=== PATIENT | female | born 1985 | race Caucasian/White ===

== ENCOUNTER → 2017-01-24 | Outpatient (CLI) | payer MEDICAID | LOC: SUN.DIA 13:31 | DX: O24.419 Gestational diabetes mellitus in pregnancy, unspecified control (principal); Z3A.17 17 weeks gestation of pregnancy; Z71.3 Dietary counseling and surveillance | CPT/HCPCS: G0108 ==

== ENCOUNTER → 2017-02-27 | Outpatient (CLI) | payer MEDICAID | LOC: SUN.DIA 09:42 | DX: O24.419 Gestational diabetes mellitus in pregnancy, unspecified control (principal); Z3A.22 22 weeks gestation of pregnancy; Z71.3 Dietary counseling and surveillance | CPT/HCPCS: G0108 ==

== ENCOUNTER → 2017-05-06 | Outpatient (CLI) | payer MEDICAID | LOC: SUN.DIA 01-30 09:32 | DX: O24.419 Gestational diabetes mellitus in pregnancy, unspecified control (principal); Z3A.31 31 weeks gestation of pregnancy; Z71.3 Dietary counseling and surveillance | CPT/HCPCS: G0108 ==

== ENCOUNTER 2017-06-14 13:30 | Outpatient (RCR) | payer MEDICAID ==
[2017-05-27 09:50] VITALS: BP 119/654; PULSE 100
[~2017-06-14] VITALS: Ht 162.6 cm; Wt 167.4 kg
[~2017-06-14 13:30] MED LIST: BALANCE B-501 TA1; PRENATAL; PRENATAL1 TA7 PO; VITAMIN D 50,1.25 MG PO; ZYRTEC ALLERGY10 MG PO
[2017-07-03] MEDS ORDERED: VITAMIN D 50,1.25 MG PO (22:03)
[2017-07-07] MEDS ORDERED: IBU600 MG PO (11:50)
[2017-07-07] MEDS ORDERED: PERCOCET 325 MG1 TA2 PO (11:50)
== END 2017-08-25 | disposition still patient (30) ==
LOC: LDRO
DX: O24.913 Unspecified diabetes mellitus in pregnancy, third trimester (principal); Z3A.34 34 weeks gestation of pregnancy

== ENCOUNTER → 2017-07-03 | Outpatient (CLI) | payer MEDICAID ==
[~2017-07-03] VITALS: Ht 162.6 cm; Wt 173.6 kg
[~2017-07-03] MED LIST changes: +IBU600 MG PO; +PERCOCET 325 MG1 TA2 PO
[2017-07-03 21:59] VITALS: BP 145/86; PULSE 99; TEMP 99
[2017-07-03 22:35] VITALS: BP 135/59; PULSE 98; TEMP 99.2
== END ==
LOC: LDRO 21:38 → COL.RAD 21:38 → COL.ER 21:38 → EDSTATUS 22:28
DX: R22.41 Localized swelling, mass and lump, right lower limb (principal)

== ENCOUNTER 2017-07-05 07:12 | Inpatient (IN) | payer MEDICAID ==
[~2017-07-05] VITALS: Ht 165.2 cm; Wt 173.6 kg
[2017-07-05] VITALS (19 sets, daily range): BP systolic 130–154; BP diastolic 60–95; PULSE 89–119; TEMP 97.8–98.4
[~2017-07-05 07:12] MED LIST changes: -IBU600 MG PO; -PERCOCET 325 MG1 TA2 PO
[2017-07-05 09:53] LABS: BASO % 0.3 % (0.0-2.0); EOS # 0.1 (0.0-0.7); EOS % 0.8 % (0-4.0); GRAN # 8.7 (1.4-6.5); LYMPH # 1.7 (1.2-3.4); LYMPH % 15.4 % (20.0-51.0); MEAN CELL VOLUME 82 fl (80.0-100.0); MEAN CORPUSCULAR HGB CONC 33 g/dl (33.0-37.0); MONO # 0.5 (0.1-0.6); MONO % 4.9 % (1.7-9.3); PLATELET COUNT 269 K/mm3 (130-400); REDCELL DISTRIBUTION WIDTH-CV 14.2 % (11.5-14.5)
[2017-07-05 09:57] LABS: HEMATOCRIT 31.9 % (37.0-47.0); HEMOGLOBIN 10.5 g/dl (12.5-16.0); MEAN CORPUSCULAR HEMOGLOBIN 27 pg (27.0-31.0)
[2017-07-05 18:34] LABS: HEMATOCRIT 28.9 % (37.0-47.0); HEMOGLOBIN 9.6 g/dl (12.5-16.0)
[2017-07-06 03:55] VITALS: BP 107/59; PULSE 107; TEMP 97.5
[2017-07-06 06:51] LABS: HEMATOCRIT 28.5 % (37.0-47.0); HEMOGLOBIN 9.3 g/dl (12.5-16.0)
[2017-07-06 09:18] VITALS: BP 117/56; PULSE 106; TEMP 98.5
[2017-07-06 16:20] VITALS: BP 102/64; PULSE 115; TEMP 97.8
[2017-07-06 20:00] VITALS: BP 147/88; PULSE 105; TEMP 98.3
[2017-07-07 07:44] VITALS: BP 140/73; PULSE 97; TEMP 98.4
[2017-07-07] MEDS ORDERED: IBU600 MG PO (11:50)
[2017-07-07] MEDS ORDERED: PERCOCET 325 MG1 TA2 PO (11:50)
== END 2017-07-07 13:00 | disposition home or self-care (01) | DRG 765 ==
LOC: OB 08:57
PROVIDERS: Obstetrics & Gynecology
PROC: 10D00Z1 Extraction of Products of Conception, Low, Open Approach (ICD-10-PCS; principal; 2017-07-05)
DX: O34.211 Maternal care for low transverse scar from previous cesarean delivery (principal); Z68.44 Body mass index [BMI] 60.0-69.9, adult; O24.113 Pre-existing type 2 diabetes mellitus, in pregnancy, third trimester; D62 Acute posthemorrhagic anemia; N85.8 Other specified noninflammatory disorders of uterus; Z3A.39 39 weeks gestation of pregnancy; Z37.0 Single live birth; O99.213 Obesity complicating pregnancy, third trimester; Z23 Encounter for immunization; E11.9 Type 2 diabetes mellitus without complications; O99.02 Anemia complicating childbirth
CPT/HCPCS: J0690; J1885; J2270; J2370; J2405; J2590; J2704; J3010; J7030

== ENCOUNTER 2020-08-05 08:48 | Inpatient (IN) | payer BC, MEDICAID ==
[~2020-08-05] VITALS: Ht 165.2 cm; Wt 178.6 kg
[2020-08-05] VITALS (15 sets, daily range): BP systolic 112–154; BP diastolic 48–79; PULSE 82–114; TEMP 98.5–98.6
[~2020-08-05 08:48] MED LIST changes: -NORCO 325 MG-51 TAB PO; -UNISOM SLEEPGEL50 MG PO; -ZYRTEC 10MG10 MG PO
--- NOTE | 2020-08-05 09:00 | NUR ---
0900- 39.4, G3L2 arrives on unit for scheduled repeat section. Abulatory to 209 with spouse. Oriented to room and POC. Patient reports normal movement, denies any contractions, LOF, or VB. Changes into clean gown. 0915- EFM explained and placed x2. Tracing well. IV to left FA. Routine labs obained via IV site. LR infusing. 0930- Consent forms explained and signed. Assessment completed. VS obtained. 1021- Ambulatory to OR suite.
[2020-08-05 09:52] LABS: BASO % 0.2 % (0.0-2.0); EOS # 0.1 (0.0-0.7); EOS % 0.6 % (0-4.0); GRAN # 8.3 (1.4-6.5); HEMOGLOBIN 10.1 g/dl (12.5-16.0); LYMPH # 1.5 (1.2-3.4); LYMPH % 14.5 % (20.0-51.0); MEAN CELL VOLUME 83 fl (80.0-100.0); MEAN CORPUSCULAR HEMOGLOBIN 27 pg (27.0-31.0); MEAN CORPUSCULAR HGB CONC 32 g/dl (33.0-37.0); MEAN PLATELET VOLUME 11.2 fl (7.4-10.4); MONO # 0.4 (0.1-0.6); MONO % 4.1 % (1.7-9.3); PLATELET COUNT 259 K/mm3 (130-400)
[2020-08-05] MEDS ORDERED: UNISOM SLEEPGEL50 MG PO (09:53)
[2020-08-05] MEDS ORDERED: ZYRTEC 10MG10 MG PO (09:54)
[2020-08-05 10:03] LABS: HEMATOCRIT 31.5 % (37.0-47.0)
[2020-08-06] VITALS: BP 127/67; PULSE 110; TEMP 98.5
[2020-08-06 07:45] LABS: HEMATOCRIT 30.2 % (37.0-47.0); HEMOGLOBIN 9.5 g/dl (12.5-16.0)
[2020-08-06 08:30] VITALS: BP 134/60; PULSE 98; TEMP 99.2
[2020-08-06 12:09] VITALS: BP 133/67; PULSE 100; TEMP 99
[2020-08-06 16:53] VITALS: BP 135/58; PULSE 103; TEMP 97.7
[2020-08-06 20:45] VITALS: BP 131/65; PULSE 111; TEMP 98.5
[2020-08-07 08:30] VITALS: BP 143/73; PULSE 88; TEMP 98.3
[2020-08-07] MEDS ORDERED: IBU600 MG PO (10:11)
[2020-08-07] MEDS ORDERED: NORCO 325 MG-51 TAB PO (10:11)
--- NOTE | 2020-08-07 14:10 | NUR ---
1400-Reviewed discharge instructions with patient. Instructed on keeping incision clean and dry. Provided follow up appointment instructions.
== END 2020-08-07 14:10 | disposition home or self-care (01) | DRG 788 ==
LOC: OB 08:48
PROVIDERS: ADMIT Obstetrics & Gynecology
PROC: 10D00Z1 Extraction of Products of Conception, Low, Open Approach (ICD-10-PCS; principal; 2020-08-05)
DX: O34.211 Maternal care for low transverse scar from previous cesarean delivery (principal); Z3A.39 39 weeks gestation of pregnancy; Z37.0 Single live birth; O99.214 Obesity complicating childbirth; E66.01 Morbid (severe) obesity due to excess calories
CPT/HCPCS: J0690; J1885; J2370; J2405; J2590; J7120

== ENCOUNTER → 2020-08-05 | Outpatient (CLI) | payer BC, MEDICAID ==
[~2020-08-05] MED LIST changes: +IBU600 MG PO; +NORCO 325 MG-51 TAB PO; +PERCOCET 325 MG1 TA2 PO; +UNISOM SLEEPGEL50 MG PO; +ZYRTEC 10MG10 MG PO
== END ==
LOC: ZCOL.LAB 08-02 10:51
DX: Z20.822 Contact with and (suspected) exposure to COVID-19 (principal)